=== PATIENT | male | born 1980 | race Caucasian/White ===

== ENCOUNTER 2020-04-13 11:36 | Emergency (ER) | payer MEDICAID ==
[~2020-04-13] VITALS: Ht 177.8 cm; Wt 83.9 kg
[2020-04-13 11:50] VITALS: BP_SYST 137
--- NOTE | 2020-04-13 11:50 | NUR ---
Patient to ER bed H1 to gown for evaluation. Side rails up. Report given to RONNELL Campbell.
[2020-04-13] MEDS ORDERED: NACL 0.9% 1,000 ML IV ONE (11:56)
--- NOTE | 2020-04-13 12:05 | NUR ---
DR BURGOS IN TO ASSESS
--- NOTE | 2020-04-13 12:20 | NUR ---
ALERT, CALM, RESP UNLABORED, SKIN WARM AND DRY. COMMUNICATES CLEARLY IN FULL COMPLETE SENTENCES, DENIES CP/SOB. STATED HE HAS BEEN TRAVELING AROUND AND BECAME FATIGUED AND DEVELOPED BACK PAIN.
[2020-04-13 12:26] LABS: BASOPHILS % (AUTO) 1.1 % (0.0-2.0); EOSINOPHILS % (AUTO) 1.7 % (0.0-4.0); HEMATOCRIT 38.3 % (36-54); HEMOGLOBIN 12.5 g/dL (14.0-18.0); LYMPHOCYTES # (AUTO) 0.5 K/uL (1.0-5.5); LYMPHOCYTES % (AUTO) 24.4 % (20.5-51.5); MEAN CORPUSCULAR HEMOGLOBIN 28 pg (27-31); MEAN CORPUSCULAR HGB CONC 33 % (32-36); MEAN CORPUSCULAR VOLUME 86 fL (79.0-98.0); MONOCYTES # (AUTO) 0.2 K/uL (0.0-1.0); MONOCYTES % (AUTO) 10.2 % (1.7-9.3); NEUTROPHILS # (AUTO) 1.4 K/uL (1.8-7.7); NEUTROPHILS % (AUTO) 62.6 % (40.0-70.0); PLATELET COUNT (AUTO) 203 K/uL (130-430); RED BLOOD CELL COUNT(AUTO) 4.47 MIL/uL (4.2-6.2); RED CELL DISTRIBUTION WIDTH 18.1 % (9.0-15.0); WHITE BLOOD COUNT (AUTO) 2.2 K/uL (4.8-10.8)
--- NOTE | 2020-04-13 12:35 | NUR ---
C/O PAIN "LOWER BACK/STOMACH" DR BURGOS AWARE
[2020-04-13 12:42] LABS: BILIRUBIN,URINE NEGATIVE (NEGATIVE); BLOOD, URINE NEGATIVE (NEGATIVE); CLARITY/URINE CLEAR (CLEAR); COLOR,URINE YELLOW (YELLOW); GLUCOSE,URINE NEGATIVE (NEGATIVE); KETONES,URINE 1+ (NEGATIVE); LEUKOCYTE ESTERASE ,URINE NEGATIVE (NEGATIVE); NITRITE, URINE NEGATIVE (NEGATIVE); PROTEIN URINE NEGATIVE (NEGATIVE); UROBILINOGEN,URINE 0.2 (0.2-1.0)
[2020-04-13] MEDS ORDERED: MORPHINE 2 MG/ML INJ. SYRINGE IVP ONE (12:45)
[2020-04-13 12:51] LABS: ANION GAP 9 (5-15); CALCIUM 7.7 mg/dL (8.4-11.0); CHLORIDE 103 mmol/L (98-107); CREATININE 0.86 mg/dL (0.55-1.30); GLUCOSE 164 mg/dL (70-99); POTASSIUM 3.6 mmol/L (3.5-5.1); SODIUM SERUM 140 mmol/L (136-145); UREA NITROGEN, BLOOD 9 mg/dL (8-21)
[2020-04-13 12:52] LABS: PROTHROMBIN TIME 10.1 SECS (9.5-12.5)
--- NOTE | 2020-04-13 12:52 | NUR ---
MEDICATED FOR PAIN, NO CHANGE IN MENTATION, CALM, ALERT, RESP UNLABORED
[2020-04-13 12:56] LABS: GFR AFRICAN AMERICAN 127 mL/min (>90)
[2020-04-13 12:59] LABS: BARBITURATE, URINE NEGATIVE (NEG <=200); BENZODIAZEPINE, URINE POSITIVE (NEG <=150); CANNABINOID, URINE NEGATIVE (NEG <=50); COCAINE, URINE NEGATIVE (NEG <=150); METHAMPHETAMINES SCREEN,URINE NEGATIVE (NEG <=500); OPIATE, URINE NEGATIVE (NEG <=100); PHENCYCLIDINE SCREEN,URINE NEGATIVE (NEG <=25); UR TRICYCLIC ANTIDEPRESSANTS NEGATIVE (NEG <=300); URINE AMPHETAMINE NEGATIVE (NEG <=500); URINE METHADONE NEGATIVE (NEG <=200); URINE OXYCODONE SCREEN NEGATIVE (NEG <=100); URINE PROPOXYPHENE SCREEN NEGATIVE (NEG <=300)
[2020-04-13 13:03] LABS: ALANINE AMINOTRANSFERASE 137 U/L (12-78); ALBUMIN 3.6 g/dL (3.4-4.8); AMYLASE 76 U/L (0-100); ASPARTATE AMINOTRANSFERASE 110 U/L (10-37); LIPASE 258 U/L (73-393)
[2020-04-13 13:07] LABS: TOTAL BILIRUBIN 0.5 mg/dL (0.0-1.0)
[2020-04-13 13:08] LABS: ACETAMINOPHEN < 1 ug/mL (1-30); ALCOHOL, BLOOD 418 mg/dL (<10)
--- NOTE | 2020-04-13 13:39 | NUR ---
UP AMBULATING TO BATHROOM WITH STEADY GAIT. NO DYSPNEA
[2020-04-13 14:00] VITALS: BP_SYST 137
--- NOTE | 2020-04-13 14:05 | NUR ---
Patient does not wish to proceed with medical care recommended by . Patient given information related to possible complications, up to and including , which could occur as a result of leaving hospital at this time. Patient verbalizes understanding of risks involved leaving against medical advice. Patient refused to sign AMA form.
--- NOTE | 2020-04-13 14:09 | NUR ---
Jose Harvey called at request of Dr. Watkins, patient becoming increasingly agitated, eloped. ETOH intoxication. Patient aware he is too intoxicated to leave on his own, Dr. Watkins was at bedside speaking to the patient. IV removed prior to elopement.
--- NOTE | 2020-04-13 14:11 | NUR ---
UP DEMANDING TO LEAVE. PT WAS INSTRUCTED TO REMAIN IN ER BUT REFUSED, DAMANDING IV DC'ED IV DC'ED AND WALKED OFF UNIT STEADY. AWARE
[2020-04-13] MEDS ORDERED: FOLIC ACID 1 MG, THIAMINE HCL 100 MG, MAGNESIUM SULFATE 1 GM, MVI 10 ML in NACL 0.9% 1,... IV ONE (14:15)
== END 2020-04-13 14:05 | disposition left against medical advice (07) ==
LOC: SED 11:36
DX: F10.129 Alcohol abuse with intoxication, unspecified (principal); M79.18 Myalgia, other site; F12.90 Cannabis use, unspecified, uncomplicated; F15.90 Other stimulant use, unspecified, uncomplicated; F17.210 Nicotine dependence, cigarettes, uncomplicated; Z88.8 Allergy status to other drugs, medicaments and biological substances; Y90.8 Blood alcohol level of 240 mg/100 ml or more
CPT/HCPCS: 36415; 80053; 80307; 81003; 82150; 83605; 83690; 85025; 85610; 85730; 87040; 96374; 99283; G0480; G0481; G0482; J2270; J7030